=== PATIENT | female | born 1945 | race Caucasian/White ===

== ENCOUNTER → 2023-10-14 09:58 | Outpatient (REF) | payer MEDICARE, SELFPAY | LOC: HWRAD 09:58 | PROVIDERS: ATTENDING PHYSICIAN Internal Medicine | DX: M81.0 Age-related osteoporosis without current pathological fracture (principal) | CPT/HCPCS: 77080 ==

== ENCOUNTER 2024-05-27 13:45 | Outpatient (RCR) | payer MEDICARE, SELFPAY | END 2024-05-27 23:59 | disposition home or self-care (01) | LOC: RST 13:45 | PROVIDERS: ATTENDING PHYSICIAN Internal Medicine | DX: G31.01 Pick's disease (principal); F02.80 Dementia in other diseases classified elsewhere, unspecified severity, without behavioral disturbance, psychotic disturbance, mood disturbance, and anxiety | CPT/HCPCS: 92507; 92523 ==

== ENCOUNTER 2024-06-26 15:16 | Outpatient (RCR) | payer MEDICARE, SELFPAY | END 2024-06-26 23:59 | disposition home or self-care (01) | LOC: RST 15:16 | PROVIDERS: ATTENDING PHYSICIAN Internal Medicine | DX: G31.01 Pick's disease (principal); F02.80 Dementia in other diseases classified elsewhere, unspecified severity, without behavioral disturbance, psychotic disturbance, mood disturbance, and anxiety; R47.01 Aphasia | CPT/HCPCS: 92507 ==

== ENCOUNTER 2024-07-17 14:33 | Outpatient (RCR) | payer MEDICARE, SELFPAY | END 2024-07-17 23:59 | disposition home or self-care (01) | LOC: RST 14:33 | PROVIDERS: ATTENDING PHYSICIAN Internal Medicine | DX: G31.01 Pick's disease (principal); F02.80 Dementia in other diseases classified elsewhere, unspecified severity, without behavioral disturbance, psychotic disturbance, mood disturbance, and anxiety; R47.01 Aphasia | CPT/HCPCS: 92507 ==

== ENCOUNTER 2024-08-20 13:51 | Outpatient (RCR) | payer MEDICARE, SELFPAY | END 2024-08-20 23:59 | disposition home or self-care (01) | LOC: RST 13:51 | PROVIDERS: ATTENDING PHYSICIAN Internal Medicine | DX: G31.01 Pick's disease (principal); F02.80 Dementia in other diseases classified elsewhere, unspecified severity, without behavioral disturbance, psychotic disturbance, mood disturbance, and anxiety; R47.01 Aphasia | CPT/HCPCS: 92507 ==

== ENCOUNTER 2024-09-17 13:43 | Outpatient (RCR) | payer MEDICARE, SELFPAY | END 2024-09-17 23:59 | disposition home or self-care (01) | LOC: RST 13:43 | PROVIDERS: ATTENDING PHYSICIAN Internal Medicine | DX: G31.01 Pick's disease (principal); F02.80 Dementia in other diseases classified elsewhere, unspecified severity, without behavioral disturbance, psychotic disturbance, mood disturbance, and anxiety; R47.01 Aphasia | CPT/HCPCS: 92507 ==

== ENCOUNTER → 2024-10-05 12:09 | Outpatient (REF) | payer MEDICARE, SELFPAY | LOC: HWWDC 12:09 | PROVIDERS: ATTENDING PHYSICIAN Internal Medicine | DX: Z12.31 Encounter for screening mammogram for malignant neoplasm of breast (principal) | CPT/HCPCS: 77063; 77067 ==

== ENCOUNTER 2024-10-15 11:20 | Outpatient (RCR) | payer MEDICARE, SELFPAY | END 2024-10-15 23:59 | disposition home or self-care (01) | LOC: RST 11:20 | PROVIDERS: ATTENDING PHYSICIAN Internal Medicine | DX: G31.01 Pick's disease (principal); F02.80 Dementia in other diseases classified elsewhere, unspecified severity, without behavioral disturbance, psychotic disturbance, mood disturbance, and anxiety; R47.01 Aphasia | CPT/HCPCS: 92507 ==

== ENCOUNTER 2024-10-29 11:19 | Outpatient (RCR) | payer MEDICARE, SELFPAY | END 2024-10-29 23:59 | disposition home or self-care (01) | LOC: RST 11:19 | PROVIDERS: ATTENDING PHYSICIAN Internal Medicine | DX: G31.01 Pick's disease (principal); F02.80 Dementia in other diseases classified elsewhere, unspecified severity, without behavioral disturbance, psychotic disturbance, mood disturbance, and anxiety; R47.01 Aphasia | CPT/HCPCS: 92507 ==

== ENCOUNTER 2024-12-10 12:22 | Outpatient (RCR) | payer MEDICARE, SELFPAY | END 2024-12-10 23:59 | disposition home or self-care (01) | LOC: RST 12:22 | PROVIDERS: ATTENDING PHYSICIAN Internal Medicine | DX: R47.01 Aphasia (principal); G31.01 Pick's disease; F02.80 Dementia in other diseases classified elsewhere, unspecified severity, without behavioral disturbance, psychotic disturbance, mood disturbance, and anxiety | CPT/HCPCS: 92507 ==

== ENCOUNTER → 2025-02-11 12:38 | Outpatient (REF) | payer MEDICARE, SELFPAY | LOC: WOUND 12:38 | PROVIDERS: ATTENDING PHYSICIAN Surgery; FAMILY PHYSICIAN Internal Medicine | DX: L97.222 Non-pressure chronic ulcer of left calf with fat layer exposed (principal); I10 Essential (primary) hypertension; Z95.0 Presence of cardiac pacemaker | CPT/HCPCS: 11042; 99203 ==

== ENCOUNTER → 2025-02-22 11:17 | Outpatient (REF) | payer MEDICARE, SELFPAY | LOC: WOUND 11:17 | PROVIDERS: ATTENDING PHYSICIAN Surgery; FAMILY PHYSICIAN Internal Medicine | DX: L97.222 Non-pressure chronic ulcer of left calf with fat layer exposed (principal); Z95.0 Presence of cardiac pacemaker; I10 Essential (primary) hypertension | CPT/HCPCS: 11042 ==

== ENCOUNTER → 2025-03-01 11:17 | Outpatient (REF) | payer MEDICARE, SELFPAY | LOC: WOUND 11:17 | PROVIDERS: ATTENDING PHYSICIAN Surgery; FAMILY PHYSICIAN Internal Medicine | DX: L97.222 Non-pressure chronic ulcer of left calf with fat layer exposed (principal); I10 Essential (primary) hypertension; Z95.0 Presence of cardiac pacemaker | CPT/HCPCS: 99212 ==

== ENCOUNTER 2025-03-30 15:56 | Emergency (ER) | payer MEDICARE, SELFPAY ==
[2025-03-30 16:08] VITALS: BP 137/82
[2025-03-30 16:29] LABS: Hematocrit 43.1 % (37.0-47.0); Hemoglobin 14.8 g/dL (12.0-16.0); Mean Corp Hgb Conc. 34.3 g/dL (33.0-37.0); Mean Corpuscular Volume 81.6 fL (81.0-99.0); Nucleated Red Blood Cells % 0 %; Platelet Count 323 10^3/uL (130-400); Red Cell Dist. Width 12.7 % (11.5-14.5)
[2025-03-30 16:43] LABS: ALT (SGPT) 14 U/L (0-35); AST (SGOT) 20 U/L (14-36); Albumin 4.5 g/dl (3.5-5.0); Alkaline Phosphatase 103 U/L (38-126); Blood Urea Nitrogen 15 mg/dl (7-17); Calcium 9.8 mg/dl (8.4-10.2); Carbon Dioxide 29 mmol/L (22-30); Chloride 105 mmol/L (98-107); Glucose 110 mg/dl (70-99); Potassium 3.7 mmol/L (3.5-5.1); Sodium 139 mmol/L (135-145); Total Protein 6.9 g/dl (6.3-8.2); eGFR > 60.00
[2025-03-30 20:00] VITALS: BP 157/84
[2025-03-30 21:00] VITALS: BP 172/71
[2025-03-30 22:00] VITALS: BP 151/79
--- NOTE | 2025-03-30 22:16 | ED.CVA ---
History of Present Illness
General
Chief Complaint: CVA/TIA Symptoms
Source: patient and spouse
Exam Limitations: none
Time Seen by Provider: 03/30/25 21:50
Nursing documentation reviewed up to this point in time: agreed with
Onset of Stroke Symptoms
Onset of symptoms known: No
Time pt last seen normal is known: No
History of Present Illness
History of Present Illness:
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 Her job putter up and ticket preparer called her today and told her
that the test resulted in a visual field loss in the right eye and telling her to get to the hospital as she needs an MRI to rule out stroke.
Patient denies any change in her vision, she denies visual loss, denies headache. She does have some memory problems but her at the bedside states she has not been complaining of any problems with her vision.
She denies problems with balance, denies numbness or tingling or weakness in her extremities, denies N/V.
Past History
Past History
ED Past Medical History: HTN, Hypercholesterolemia, Other (Aphasia) and Other (Memory problems memory problems)
ED Past Surgical History: Cardiac (Pacemaker)
Social History
Tobacco: Non-smoker
Personal:
Living: with family
Review of Systems
Review of Systems
Allergies reviewed?: Yes
All Other Systems: ROS reviewed and negative except as documented in HPI and ROS
Phy Exam
Physical Exam
Physical Exam:
GENERAL: No acute distress. A&Ox3.
CONSTITUTIONAL: Afebrile.
EYES: clear, conjunctivae normal, PERRL, good red reflex bilaterally, all visual hernandez are intact.
ENMT: moist mucus membranes, Pharynx nl
RESPIRATORY: Regular respirations, nonlabored, lungs clear.
CARDIOVASCULAR: Regular rate and rhythm, no murmurs, no rubs.
GI: Soft, nontender, normal BS
MUSCULOSKELETAL: Moves with ease. Well perfused.
SKIN: Warm, dry, pink
PSYCH: Normal mood and affect. Well kept, interactive and appropriate
NEUROLOGIC: Awake, alert and oriented. No focal neurological deficits
Course
Orders/Labs/Results
Orders:
Orders
03/30/25 16:13
CT Head W/o Iv Contrast Urgent
Comment: pt denies any s/s no complaints
Reason For Exam: abnormal eye exam sent for possible stroke
03/30/25 16:18
Complete Blood Count/With Diff Urgent
Comprehensive Metabolic Panel Urgent
Abnormal Lab Results
03/30/25
16:18
WBC 15.9 H 10^3/uL
(4.8-10.8)
Abs Immat Gran (auto) 0.1 H 10^3/uL
(0-0.05)
Absolute Neuts (auto) 13.3 H 10^3/uL
(1.4-6.5)
Absolute Monos (auto) 1.2 H 10^3/uL
(0.1-0.6)
Neutrophils % 83.2 H %
(42.2-75.2)
Lymphocytes % 7.6 L %
(20.5-51.1)
Glucose 110 H mg/dl
(70-99)
03/30/25 16:18
03/30/25 16:18
Vital Signs
Initial and Last Documented VS:
Initial Vital Signs
Temp Pulse Resp BP Pulse Ox
98.0 F 82 16 137/82 98
03/30/25 16:08 03/30/25 16:08 03/30/25 16:08 03/30/25 16:08 03/30/25 16:08
Last Documented Vital Signs
Temp Pulse Resp BP Pulse Ox
98.0 F 72 17 151/79 97
03/30/25 16:08 03/30/25 22:00 03/30/25 22:00 03/30/25 22:00 03/30/25 22:17
Multi Skilled Operator consulted with Physician
Multi Skilled Operator consulted with physician?: Yes
Name of Physician Consulted: Hans
MDM/Problems Addressed
MDM/Problems Addressed:
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 Her job putter up and ticket preparer called her today and told her
that the test resulted in a visual field loss in the right eye and telling her to get to the hospital as she needs an MRI to rule out stroke.
Patient denies any change in her vision, she denies visual loss, denies headache. She does have some memory problems but her at the bedside states she has not been complaining of any problems with her vision.
She denies problems with balance, denies numbness or tingling or weakness in her extremities, denies N/V.
Patient alert and pleasant, NAD
No focal neurological deficits.
Correctly reads finger at 10 feet. Visual hernandez intact. Good red reflex bilaterally.
Sent here by her job putter up and ticket preparer who saw her 10 days ago on routine f/u, pt had a test during that visit, eye doctor called pt today for visual field defect right eye and sent here to r/o stroke. Pt is asymptomatic now, visual hernandez intact, head
CT neg. CBC, CMP normal save for WBC 15. Exam here neg, she should have carotid US, MRI as out patient. She is already taking ASA 81 mg daily.
Message sent to and read by PCP informing of pt discharge and need for follow up next day for out pt testing.
Case discussed with Dr. Maxwell who agrees with assessment and plan
*Pulse Oximetry
SaO2: 97
Oxygen Mode of Delivery: Room air
Patient hypoxic: not evaluated
*Critical Care Note
Total Time (30-74mins, 75-104mins- exclusive of procedures): Not Applicable
ED Attending Note
-
Portions of this chart may have been created with voice recognition software.� Occasional wrong word or��sound alike� substitutions may have occurred due to the inherent limitations of voice recognition software.
Discharge Plan
Departure
Patient Disposition: Home (Routine Discharge)
Date of Disposition: 03/30/25
Time of Disposition: 22:10
Patient with high blood pressure during this ER visit?: No
Condition: Good
Discharge Problem:
history of hemianopsia
Prescriptions:
No Action
aspirin,buffd-calcium carb-mag 325 MG tablet
325 mg PO DAILY
losartan-hydrochlorothiazide [Hyzaar] 1 TAB tablet
1 tab PO DAILY
simvastatin 20 MG tablet
20 mg PO DAILY
ibuprofen [Advil] 200 MG tablet
400 mg PO PRN
cdgibnbftuhg-sjzksjzk-nijjen [Centrum Silver] 1 TAB tablet
1 tab PO DAILY
travoprost (benzalkonium) 5 ML drops
1 drp OPHTHALMIC HS
omega-3 fatty acids-fish oil 1 CAP capsule
1 cap PO DAILY
Referrals:
Laura Gutierrez MD [Family Provider, Internal Medicine] - Tomorrow
Activity Restrictions/Additional Instructions:
As we discussed, I see nothing worrisome in your workup here today.
Because your test showed that you had some visual field loss, you should have carotid ultrasound and an MRI. This can be done as an outpatient.
I sent a text message to Dr. Gutierrez regarding this. I informed her that you will be calling her office tomorrow.
Return here immediately for loss of vision otherwise follow-up with Dr. Gutierrez.
Interventions
Interventions:
*Risk Screen - Suicide Last Done: 03/30/25 16:08
*General Assessment Last Done: 03/30/25 20:51
*Neglect/Abuse Screening Last Done: 03/30/25 16:08
*ED- Fall Risk Assessment Last Done: 03/30/25 20:51
*ED COVID-19 Vaccine History Last Done: 03/30/25 20:47
*Nursing Disposition Last Done: 03/30/25 22:22
ED- Pulmonary Assessment Last Done: 03/30/25 20:51
ED- Neurological Assessment Last Done: 03/30/25 20:51
ED- Cardiac Assessment Last Done: 03/30/25 20:51
Discharge Date and Time
Discharge Date/Time: 03/30/25 22:23
Print Language: TELUGU
== END 2025-03-30 22:23 | disposition home or self-care (01) ==
LOC: EMR 15:56
PROVIDERS: Emergency Medicine; EMERGENCY PHYSICIAN Emergency Medicine; FAMILY PHYSICIAN Internal Medicine
DX: H53.47 Heteronymous bilateral field defects (principal); I10 Essential (primary) hypertension; E78.00 Pure hypercholesterolemia, unspecified; R47.01 Aphasia; H40.9 Unspecified glaucoma; Z79.82 Long term (current) use of aspirin; Z95.0 Presence of cardiac pacemaker
CPT/HCPCS: 99284; 70450; 80053; 85025

== ENCOUNTER → 2025-04-06 13:48 | Outpatient (REF) | payer MEDICARE, SELFPAY | LOC: MRI 13:48 | PROVIDERS: ATTENDING PHYSICIAN Internal Medicine | DX: H53.461 Homonymous bilateral field defects, right side (principal) | CPT/HCPCS: 70553; 76014; 76015; A9575 ==

== ENCOUNTER → 2025-04-08 15:33 | Outpatient (REF) | payer MEDICARE, SELFPAY | LOC: DHVS 15:33 | PROVIDERS: ATTENDING PHYSICIAN Internal Medicine | DX: H53.461 Homonymous bilateral field defects, right side (principal) | CPT/HCPCS: 93880 ==

== ENCOUNTER → 2025-07-27 13:45 | Outpatient (REF) | payer MEDICARE, SELFPAY | LOC: HWRAD 13:45 | PROVIDERS: ATTENDING PHYSICIAN Internal Medicine | DX: R51.9 Headache, unspecified (principal); M53.82 Other specified dorsopathies, cervical region | CPT/HCPCS: 72050 ==